=== PATIENT | male | born 1975 | race Caucasian/White ===

== ENCOUNTER 2020-10-25 09:39 | Emergency (ER) | payer SELFPAY ==
[~2020-10-25] VITALS: Ht 170 cm; Wt 92.0 kg
--- NOTE | 2020-10-25 10:16 | ED Cardiac General ---
History of Present Illness General Stated Complaint: HIGH BP Source: patient, spouse Exam Limitations: language barrier (Language line) History of Present Illness Date Seen by Provider: Oct 25, 2020 Time Seen by Provider: 09:47 Initial Comments Patient to the ER by private conveyance from the [facility] where he was being worked up for a routine appointment for his hypertension. He takes lisinopril 40 mg a day and hydrochlorothiazide 25 mg a day. He is not having any symptoms today but they discovered his blood pressure to be elevated 200/100 and sent him to the ER. He is not having any chest pain shortness of air fever chills nausea weakness numbness, slurred speech, facial droop, history of stroke or heart attack. He did have some chest pain in January 2020 and was discovered to have COVID-19 at [facility]. They did do a stress test at that time and told him everything was okay. He follows with Dr. Medina for cardiology and [facility] for [facility] care. He does not have any other known medical history. He does not have hyperlipidemia smoking diabetes coronary disease. The patient states he has been taking his medications routinely. He also drinks energy drinks daily. Allergies and Home Medications Allergies Coded Allergies: No Known Drug Allergies (Unverified , 10/25/20) Home Medications Amlodipine Besylate 5 Mg Tablet, 5 MG PO DAILY Prescribed by: GUERITA ZULUAGA on 10/25/20 1323 Patient Home Medication List Home Medication List Reviewed: Yes Review of Systems Review of Systems Constitutional: No chills, No fever EENTM: No Blurred Vision, No Double Vision Respiratory: Denies Cough, Denies Shortness of Air Cardiovascular: Denies Chest Pain, Denies Edema, Denies Irregular Heart Rate, Denies Lightheadedness, Denies Palpitations, Denies Syncope Gastrointestinal: Denies Constipated, Denies Diarrhea, Denies Nausea Genitourinary: Denies Burning, Denies Discharge, Denies Drainage Musculoskeletal: No back pain, No joint pain Skin: No pruritus, No rash Psychiatric/Neurological: Denies Headache, Denies Numbness All Other Systems Reviewed Negative Unless Noted: Yes Past Yrnbjwl-Svpfko-Fzlaby Hx Patient Social History Alcohol Use: Denies Use Drug of Choice: Denies Smoking Status: Never a Smoker Physical Exam Vital Signs Vital Signs - First Documented 10/25/20 09:42 Temp 36.0 Pulse 79 Resp 16 B/P (MAP) 136/ Pulse Ox 98 O2 Delivery Room Air Capillary Refill : Height, Weight, BMI Height: '" Weight: lbs. oz. kg; BMI Method: General Appearance: No Apparent Distress, WD/WN HEENT: PERRL/EOMI, Pharynx Normal, Moist Mucous Membranes Neck: Full Range of Motion, Normal Inspection Respiratory: Lungs Clear, Normal Breath Sounds, No Accessory Muscle Use, No Respiratory Distress Cardiovascular: Regular Rate, Rhythm, No Edema, No Murmur, Normal Peripheral Pulses Extremity: Normal Capillary Refill, Normal Inspection, No Pedal Edema Neurologic/Psychiatric: Alert, Oriented x3, No Motor/Sensory Deficits, Normal Mood/Affect Skin: Normal Color, Warm/Dry Progress/Results/Core Measures Results/Orders Lab Results Laboratory Tests Test 10/25/20 10:15 10/25/20 10:55 Range/Units White Blood Count 6.7 4.3-11.0 10^3/uL Red Blood Count 4.98 4.30-5.52 10^6/uL Hemoglobin 15.6 13.3-17.7 g/dL Hematocrit 45 40-54 % Mean Corpuscular Volume 90 80-99 fL Mean Corpuscular Hemoglobin 31 25-34 pg Mean Corpuscular Hemoglobin Concent 35 32-36 g/dL Red Cell Distribution Width 12.9 10.0-14.5 % Platelet Count 276 130-400 10^3/uL Mean Platelet Volume 10.5 9.0-12.2 fL Immature Granulocyte % (Auto) 0 % Neutrophils (%) (Auto) 57 42-75 % Lymphocytes (%) (Auto) 35 12-44 % Monocytes (%) (Auto) 6 0-12 % Eosinophils (%) (Auto) 2 0-10 % Basophils (%) (Auto) 0 0-10 % Neutrophils # (Auto) 3.8 1.8-7.8 10^3/uL Lymphocytes # (Auto) 2.3 1.0-4.0 10^3/uL Monocytes # (Auto) 0.4 0.0-1.0 10^3/uL Eosinophils # (Auto) 0.1 0.0-0.3 10^3/uL Basophils # (Auto) 0.0 0.0-0.1 10^3/uL Immature Granulocyte # (Auto) 0.0 0.0-0.1 10^3/uL Sodium Level 138 135-145 MMOL/L Potassium Level 3.8 3.6-5.0 MMOL/L Chloride Level 104 98-107 MMOL/L Carbon Dioxide Level 24 21-32 MMOL/L Anion Gap 10 5-14 MMOL/L Blood Urea Nitrogen 20 H 7-18 MG/DL Creatinine 1.56 H 0.60-1.30 MG/DL Estimat Glomerular Filtration Rate 48 BUN/Creatinine Ratio 13 Glucose Level 111 H 70-105 MG/DL Calcium Level 9.7 8.5-10.1 MG/DL Corrected Calcium 9.3 8.5-10.1 MG/DL Total Bilirubin 0.4 0.1-1.0 MG/DL Aspartate Amino Transf (AST/SGOT) 20 5-34 U/L Alanine Aminotransferase (ALT/SGPT) 31 0-55 U/L Alkaline Phosphatase 59 40-136 U/L C-Reactive Protein High Sensitivity 0.06 0.00-0.50 MG/DL B-Type Natriuretic Peptide 13.6 <100.0 PG/ML Total Protein 7.8 6.4-8.2 GM/DL Albumin 4.5 3.2-4.5 GM/DL Urine Color YELLOW Urine Clarity CLEAR Urine pH 6.0 5-9 Urine Specific [place] 1.025 H 1.016-1.022 Urine Protein 2+ H NEGATIVE Urine Glucose (UA) NEGATIVE NEGATIVE Urine Ketones NEGATIVE NEGATIVE Urine Nitrite NEGATIVE NEGATIVE Urine Bilirubin NEGATIVE NEGATIVE Urine Urobilinogen 0.2 < = 1.0 MG/DL Urine Leukocyte Esterase NEGATIVE NEGATIVE Urine RBC (Auto) NEGATIVE NEGATIVE Urine RBC NONE /HPF Urine WBC RARE /HPF Urine Squamous Epithelial Cells RARE /HPF Urine Crystals NONE /LPF Urine Bacteria NEGATIVE /HPF Urine Casts NONE /LPF Urine Mucus NEGATIVE /LPF Urine Culture Indicated NO Urine Opiates Screen NEGATIVE NEGATIVE Urine Oxycodone Screen NEGATIVE NEGATIVE Urine Methadone Screen NEGATIVE NEGATIVE Urine Propoxyphene Screen NEGATIVE NEGATIVE Urine Barbiturates Screen NEGATIVE NEGATIVE Ur Tricyclic Antidepressants Screen NEGATIVE NEGATIVE Urine Phencyclidine Screen NEGATIVE NEGATIVE Urine Amphetamines Screen NEGATIVE NEGATIVE Urine Methamphetamines Screen NEGATIVE NEGATIVE Urine Benzodiazepines Screen NEGATIVE NEGATIVE Urine Cocaine Screen NEGATIVE NEGATIVE Urine Cannabinoids Screen NEGATIVE NEGATIVE My Orders Orders - GUERITA ZULUAGA Cbc With Automated Diff (10/25/20 10:09) Comprehensive Metabolic Panel (10/25/20 10:09) Hs C Reactive Protein (10/25/20 10:09) Ua Culture If Indicated (10/25/20 10:09) Drug Screen Stat (Urine) (10/25/20 10:09) BNP (10/25/20 10:09) Ekg Tracing (10/25/20 10:09) Continuous Ekg Monitoring (10/25/20 10:09) Chest 1 View, Ap/Pa Only (10/25/20 10:09) Labetalol Injection (Normodyne Injection (10/25/20 10:45) Medications Given in ED Current Medications Medications Dose Ordered Sig/Izabella Route Start Time Stop Time Status Last Admin Dose Admin Labetalol HCl 20 mg ONCE ONCE IV 10/25/20 10:45 10/25/20 10:46 DC 10/25/20 10:55 20 MG Vital Signs/I&O 10/25/20 10/25/20 09:42 13:35 Temp 36.0 Pulse 79 66 Resp 16 16 B/P (MAP) 136/ 175/121 Pulse Ox 98 98 O2 Delivery Room Air Room Air Progress Progress Note #1: Time: 10:14 Progress Note Well-appearing adult with elevated hypertension inadequately controlled on outpatient medications. We will obtain EKG labs including a troponin and see if we can discover any reason for his hypertension that needs addressed directly in the ER. If not we will make recommendations to start amlodipine or spironolactone. He cannot member the name of the blood pressure medication he had problems with last year. Progress Note #2: Time: 13:06 Progress Note The patient has had no material deterioration in his ER stay. He had no further symptoms. We gave a single dose of labetalol because his blood pressure remained 200/120 and it has come down significantly to 160/114. We do not wish to push it any further down at this time. We will instead initiate amlodipine and encourage him to follow-up with his primary care provider about his marginal elevation in creatinine to see if this is chronic or not. He may need to switch off of the hydrochlorothiazide if that is the case. He may also need to consider referral for further management of resistant hypertension. Initial ECG Impression Date: Oct 25, 2020 Initial ECG Impression Time: 10:14 Initial ECG Rate: 74 Initial ECG Rhythm: Normal Sinus Initial ECG Intervals: Normal Initial ECG Impression: Normal Initial ECG Comparisson: No Previous ECG Available Comment Normal sinus rhythm without clinically relevant ST elevation or depression. Diagnostic Imaging Diagonstic Imaging: Xray Plain Films/CT/US/NM/MRI: chest Comments [facility]. [place], [place] NAME: SALVATORE [facility] REC#: [id number] PT STATUS: DEP ER : 1975 PHYSICIAN: GUERITA ZULUAGA MD ADMIT DATE: 10/25/20/ER Signed Date of Exam:10/25/20 CHEST 1 VIEW, AP/PA ONLY INDICATION: Hypertension. COMPARISON: None available. TECHNIQUE: Single frontal radiograph of the chest dated October 25, 2020. FINDINGS: The cardiac silhouette is within normal limits in size. No significant pulmonary vascular congestion. The lungs are clear. No pleural effusion. No pneumothorax. No acute osseous abnormality. IMPRESSION: No acute cardiopulmonary abnormality. Dictated by: Dictated on workstation # [id number] Dict: 10/25/20 1142 Trans: 10/25/20 1559 AS6 [id number] Interpreted by: VALDEMAR PITTS MD Electronically signed by: VALDEMAR PITTS MD 10/25/20 1559 Reviewed: Reviewed by Me Departure Impression Primary Impression: HTN (hypertension) Qualified Codes: I10 - Essential (primary) hypertension Disposition: 01 HOME, SELF-CARE Condition: Stable Departure-Patient Inst. Decision time for Depature: 13:08 Referrals: [facility] (PCP/Family) Primary Care Physician Patient Instructions: High Blood Pressure (DC) Add. Discharge Instructions: Go easy on the energy drinks and make sure drinking plenty of fluids such as water for the next couple weeks. Continue to take your medications as prescribed. 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 Start taking 5 mg once a day to help lower your blood pressure. Follow-up in 1 week with your primary care doctor to recheck labs for your kidney function and continue to manage your blood pressures. Return to the ER promptly if you are having chest pain, shortness of air or other worrisome symptoms. Scripts Amlodipine Besylate (Amlodipine Besylate) 5 Mg Tablet 5 MG PO DAILY for 14 Days, #14 TAB 0 Refills Prov: GUERITA ZULUAGA 10/25/20 Work/School Note: Work Release Form Date Seen in the Emergency Department: Oct 25, 2020 Return to Work: Oct 26, 2020 Copy Copies To 1: TIFFANIE GATES TITUS J Oct 25, 2020 10:16
[2020-10-25 10:30] LABS: BASOPHILS % (AUTO) 0 % (0-10); EOSINOPHILS # (AUTO) 0.1 10^3/uL (0.0-0.3); EOSINOPHILS % (AUTO) 2 % (0-10); HEMATOCRIT 45 % (40-54); HEMOGLOBIN 15.6 g/dL (13.3-17.7); LYMPHOCYTES # (AUTO) 2.3 10^3/uL (1.0-4.0); LYMPHOCYTES % (AUTO) 35 % (12-44); MEAN CORPUSCULAR HEMOGLOBIN 31 pg (25-34); MEAN CORPUSCULAR HGB CONC 35 g/dL (32-36); MEAN CORPUSCULAR VOLUME 90 fL (80-99); MEAN PLATELET VOLUME 10.5 fL (9.0-12.2); MONOCYTES # (AUTO) 0.4 10^3/uL (0.0-1.0); MONOCYTES % (AUTO) 6 % (0-12); NEUTROPHILS # (AUTO) 3.8 10^3/uL (1.8-7.8); NEUTROPHILS % (AUTO) 57 % (42-75); PLATELET COUNT 276 10^3/uL (130-400); WHITE BLOOD COUNT 6.7 10^3/uL (4.3-11.0)
[2020-10-25 10:39] LABS: ALBUMIN 4.5 GM/DL (3.2-4.5); POTASSIUM 3.8 MMOL/L (3.6-5.0)
[2020-10-25 10:40] LABS: CALCIUM 9.7 MG/DL (8.5-10.1)
[2020-10-25 10:41] LABS: TOTAL PROTEIN 7.8 GM/DL (6.4-8.2)
[2020-10-25 10:43] LABS: BILIRUBIN,TOTAL 0.4 MG/DL (0.1-1.0)
[2020-10-25 10:45] LABS: CREATININE SERUM 1.56 MG/DL (0.60-1.30)
[2020-10-25] MEDS ORDERED: LABETALOL HCL 20 MG/4 ML VIAL IV ONE (10:45)
[2020-10-25 11:05] LABS: BILIRUBIN,URINE NEGATIVE (NEGATIVE); CLARITY,URINE CLEAR; COLOR,URINE YELLOW; GLUCOSE, URINE (UA) NEGATIVE (NEGATIVE); KETONES,URINE NEGATIVE (NEGATIVE); LEUKOCYTE ESTERASE ,URINE NEGATIVE (NEGATIVE); NITRITE,URINE NEGATIVE (NEGATIVE); PROTEIN,URINE 2+ (NEGATIVE)
[2020-10-25 11:16] LABS: BACTERIA,URINE NEGATIVE /HPF; SQUAMOUS EPITHELIAL CELL,UR RARE /HPF; WBC,URINE RARE /HPF
[2020-10-25 11:27] LABS: AMPHETAMINE SCREEN, URINE NEGATIVE (NEGATIVE); BARBITURATE SCREEN URINE NEGATIVE (NEGATIVE); BENZODIAZEPINES SCREEN URINE NEGATIVE (NEGATIVE); CANNABINOID SCREEN, URINE NEGATIVE (NEGATIVE); COCAINE SCREEN URINE NEGATIVE (NEGATIVE); METHADONE STAT NEGATIVE (NEGATIVE); METHAMPHETAMINE SCREEN URINE S NEGATIVE (NEGATIVE); OPIATE SCREEN URINE NEGATIVE (NEGATIVE); OXYCODONE STAT NEGATIVE (NEGATIVE); PROPOXYPHENE STAT NEGATIVE (NEGATIVE); TRICYCLIC ANTIDEPRESSANTS SCRE NEGATIVE (NEGATIVE)
--- NOTE | 2020-10-25 11:45 | Diagnostic Imaging Report ---
INDICATION: Hypertension. COMPARISON: None available. TECHNIQUE: Single frontal radiograph of the chest dated October 25, 2020. FINDINGS: The cardiac silhouette is within normal limits in size. No significant pulmonary vascular congestion. The lungs are clear. No pleural effusion. No pneumothorax. No acute osseous abnormality. IMPRESSION: No acute cardiopulmonary abnormality. Dictated by: Dictated on workstation # [id number]
[2020-10-25] MEDS ORDERED: AMLO-250 PO (13:23)
[2020-10-25 13:35] VITALS: BP 175/121
== END 2020-10-25 13:35 | disposition home or self-care (01) ==
LOC: ER 09:41
DX: I10 Essential (primary) hypertension (principal); Z86.16 Personal history of COVID-19
CPT/HCPCS: 36415; 71045; 80053; 80306; 81000; 83880; 85025; 86141; 93005

== ENCOUNTER → 2021-06-07 | Outpatient (CLI) | payer SELFPAY ==
[~2021-06-07] MED LIST: AMLO-250 PO
[2021-06-07 14:47] VITALS: BP 133/74
--- NOTE | 2021-06-07 16:02 | Cardiology Stress Test Report ---
Stress Test Report Date of Procedure/Referring: Date of Procedure: Jun 07, 2021 PCP Bert Quiroz DO Admitting Physician Center/[facility] Indications: Palpitation Baseline Heart Rate: 82 Baseline Blood Pressure: Blood Pressure Systolic: 133 Blood Pressure Diastolic: 74 Baseline EKG: Baseline EKG: NSR Summary/Conclusion: Summary: In summary, the patient started exercising with a baseline heart rate, blood pressure and EKG mentioned above Patient was able to exercise for a total of 5 minutes on Felice protocol, METs 7 Maximum heart rate 156 Maximum blood pressure 167/81 Stress EKG, Minimal nondiagnostic changes Recovery EKG , Return to baseline Conclusion: 1. Good exercise tolerance for a total of 5 minutes on Felice protocol, 7 METs, achieving 90 percent of maximum expected heart rate 2. Minimal nondiagnostic EKG changes with exercise returned to baseline during recovery 3. No arrhythmia was noted LESTER HWANG MD Jun 07, 2021 16:02
== END ==
LOC: CARD 14:11
PROVIDERS: ATTEND Pediatrics
DX: I11.9 Hypertensive heart disease without heart failure (principal); I35.8 Other nonrheumatic aortic valve disorders
CPT/HCPCS: 93017; 93306